=== PATIENT | male | born 1990 ===

== ENCOUNTER 2017-08-31 17:27 | Emergency (ER) | payer MEDICAID ==
[~2017-08-31] VITALS: Ht 167.6 cm; Wt 86.2 kg
[2017-08-31 17:45] VITALS: Ht 167.6 cm; Wt 86.2 kg
[2017-08-31 21:03] VITALS: BP 120/69
== END 2017-08-31 21:03 | disposition home or self-care (01) ==
LOC: ED 17:27
DX: K52.9 Noninfective gastroenteritis and colitis, unspecified (principal)
CPT/HCPCS: J1885; Q0162